=== PATIENT | male | born 2000 | race Caucasian/White ===

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

== ENCOUNTER 2022-04-12 13:13 | Emergency (ER) | payer OTHER ==
[2022-04-12 14:25] VITALS: BP 107/67; TEMP 98.1; BMI 22.6
[2022-04-12 16:45] LABS: EPI CELLS >36 /uL (0-25.1); HYALINE CASTS 8 /uL (0-3.1); PH,URINE 6.5 (5.0-8.0); URINE APPEARANCE CLOUDY; URINE BACTERIA 22 /uL (0-1359); URINE BILIRUBIN NEGATIVE (NEGATIVE); URINE COLOR DK YELLOW; URINE GLUCOSE (UA) NEGATIVE (NEGATIVE); URINE KETONE TRACE (NEGATIVE); URINE LEUK ESTERASE TRACE (NEGATIVE); URINE NITRITE NEGATIVE (NEGATIVE); URINE PROTEIN 2+ (NEGATIVE); URINE RBC 4176 /uL (0-23.9); URINE WBC 23 /uL (0-25.8)
[2022-04-12] MEDS ORDERED: TAMSULOSIN HCL 0.4 MG CAP PO ONE (18:24)
[2022-04-12] MEDS ORDERED: TAMSULOSIN HCL 0.4 MG CAP ONE (18:41)
[2022-04-12 18:50] VITALS: PULSE 61
== END 2022-04-12 18:51 | disposition home or self-care (01) ==
LOC: JER 13:13
DX: N20.0 Calculus of kidney (principal); R16.0 Hepatomegaly, not elsewhere classified
CPT/HCPCS: 74176-TC; 81003; 87077; 87086; 99284-25

== ENCOUNTER 2024-04-26 14:59 | Emergency (ER) | payer OTHER ==
[2024-04-26 15:10] VITALS: BP 110/66; PULSE 63; RESP 20; TEMP 97.6; BMI 20.5
[2024-04-26 15:55] LABS: BASO % 0.6 % (0-2.0); EOS % 1.5 % (0-4.5); HEMATOCRIT 38.4 % (35.4-49); LYMPH % 17.3 % (8-40); MCHC 33.8 g/dl (32.0-35.9); MEAN CELL VOLUME 79.8 fl (80-96); MEAN PLT VOLUME 8.5 fl (7.5-11.1); MONO % 6.5 % (3.8-10.2); NEUT % 74.1 % (42.8-82.8); PLATELET COUNT 244 10^3/uL (134-434); RBC 4.81 M/mm3 (4.00-5.60); RDW 12.8 % (11.9-15.9); WHITE BLOOD COUNT 6.4 K/mm3 (4.0-10.0)
[2024-04-26] MEDS ORDERED: ACETAMINOPHEN 325 MG TABLET (FP) ONE (16:01)
[2024-04-26] MEDS: ACETAMINOPHEN 325 MG TABLET (FP) PO ONE (16:05)
[2024-04-26] MEDS: KETOROLAC TROMETHAMINE 30 MG/1 ML VIAL IVPUSH ONE (16:05)
[2024-04-26] MEDS: SODIUM CHLORIDE 0.9% 500 ML INFUS.BAG IV ONE (16:06)
[2024-04-26 16:13] LABS: POTASSIUM 4.4 mmol/L (3.5-5.1)
[2024-04-26 16:15] LABS: ALBUMIN 4.3 g/dl (3.4-5.0); BLOOD UREA NITROGEN 9.8 mg/dL (7-18); CALCIUM 9.4 mg/dL (8.5-10.1); MAGNESIUM 2.2 mg/dL (1.8-2.4)
[2024-04-26 16:19] LABS: CREATININE 0.9 mg/dL (0.55-1.3)
[2024-04-26 16:20] LABS: BILIRUBIN,TOTAL 0.6 mg/dL (0.2-1); TOT PROT 7.2 g/dl (6.4-8.2)
[2024-04-26 17:04] LABS: INR 1.22 (0.83-1.09); PROTHROMBIN TIME (PATIENT) 13.7 SEC (9.7-13.0)
[2024-04-26 17:07] LABS: ACTIVATED PTT 34.3 SECONDS (25.2-36.5)
== END 2024-04-26 17:09 | disposition home or self-care (01) ==
LOC: JER 14:59
PROC: 3E0333Z Introduction of Anti-inflammatory into Peripheral Vein, Percutaneous Approach (ICD-10-PCS; principal; 2024-04-26)
DX: R07.89 Other chest pain (principal); Z20.822 Contact with and (suspected) exposure to COVID-19
CPT/HCPCS: 0241U-QW; 36415; 71046-TC-FY; 80053; 82550; 82553; 83735; 84484; 85025; 85610; 85730; 93005; 93010; 99285-25